=== PATIENT | male | born 1980 | race Two or more races ===

== ENCOUNTER 2022-01-28 15:48 | Emergency (ER) | payer SELFPAY ==
[~2022-01-28] VITALS: Ht 180.3 cm; Wt 99.8 kg
[2022-01-28] MEDS ORDERED: KETOROLAC TROMETHAMINE 15 MG INJ ONE (16:11)
[2022-01-28 16:14] LABS: *BILIRUBIN,URIN NEGATIVE (NEGATIVE); *BLOOD, URINE 3+ (NEGATIVE); *CLARITY,URINE CLOUDY (CLEAR); *COLOR,URINE YELLOW (YELLOW); *KETONES,URINE TRACE (NEGATIVE); *UROBILINOGEN,URINE 0.2 E.U./dl (NORMAL); LEUKOCYTE ESTERASE ,URINE NEGATIVE (NEGATIVE); NITRITE, URINE NEGATIVE (NEGATIVE); PH,URINE 5.5 (5.0-8.0); UGLUCOSE NEGATIVE (NEGATIVE)
[2022-01-28] MEDS ORDERED: KETOROLAC TROMETHAMINE 15 MG INJ IVP ONE (16:15)
[2022-01-28] MEDS ORDERED: IV NORMAL SALINE 500 ML BAG IV ONE (16:15)
[2022-01-28 16:24] LABS: MEAN CORPUSCULAR HEMOGLOBIN 29.4 uug (23.8-33.4); MEAN CORPUSCULAR VOLUME 86.3 fL (73.0-96.2); PLATELET COUNT (AUTO) 260 K/uL (152-348)
[2022-01-28 16:31] LABS: CREATININE 1.7 mg/dL (0.6-1.3); POTASSIUM 4.4 mmol/L (3.5-5.1)
[2022-01-28 16:36] LABS: BILIRUBIN,DIRECT 0.2 mg/dL (0.0-0.2); BILIRUBIN,TOTAL 0.8 mg/dL (0.2-1.0); TOTAL PROTEIN, SERUM 7.7 g/dL (6.4-8.2)
--- NOTE | 2022-01-28 17:48 | NUR ---
"Plan to admit" per Dr. Mcclure. ER registration Jairo, nursing distribution operation supervisor Linda and 3rd floor staff nurse Yasmin notified. Patient is comfortable@this time, for possible surgery tonight.
--- NOTE | 2022-01-28 18:00 | NUR ---
IV removed. Catheter intact and site benign. Pressure and 4x4 gauze applied to site. No bleeding noted. Patient does not wish to proceed with medical care recommended by . Patient given information related to possible complications, up to and including , which could occur as a result of leaving the hospital at this time. Patient verbalized understanding of risks involved due to leaving against medical advice. Patient signed AMA form.
--- NOTE | 2022-01-28 18:00 | NUR ---
Patient is refusing surgery at this time, MD notified.
[2022-01-28] MEDS ORDERED: TAMS-3 PO (18:14)
[2022-01-28] MEDS ORDERED: OXYC5CAP18 PO (18:14)
[2022-01-28] MEDS ORDERED: MAGNESIUM HYDROXIDE 30 ML LIQUID UDC PO PRN (18:45)
[2022-01-28] MEDS ORDERED: IV NS 1000 ML 1,000 ML IV PRN (18:45)
[2022-01-28] MEDS ORDERED: Medication Not On Formulary EA (Oxycodone Hcl 1 CAP) PO PRN (18:45)
[2022-01-28] MEDS ORDERED: ACETAMINOPHEN 325 MG TABLET PO PRN (18:45)
[2022-01-28] MEDS ORDERED: REMEDY ESSENTIAL ZINC PASTE 113 GM TP PRN (18:45)
[2022-01-28] MEDS ORDERED: CEFTRIAXONE 1 G in IV DEXTROSE 5% 50 ML IV SCH (18:45)
[2022-01-28] MEDS ORDERED: ONDANSETRON 4 MG/2 ML VIAL IV PRN (18:45)
[2022-01-28] MEDS ORDERED: HYDROMORPHONE 1 MG/1 ML DISP.SYRIN IV PRN (18:45)
[2022-01-28 20:14] LABS: BACTERIA,URINE NONE SEEN /HPF (NONE SEEN); RBC,URINE 20-50 /HPF (0-3); SQUAMOUS EPITHELIAL CELL,UR FEW /HPF (NONE SEEN); URINE AMORPHOUS URATE MODERATE /HPF; WBC,URINE 0-3 /HPF (0-3)
[2022-01-29] MEDS ORDERED: TAMSULOSIN HCL 0.4 MG CAP.SR.24H PO SCH (09:00)
== END 2022-01-28 18:13 | disposition left against medical advice (07) ==
LOC: ER 15:48
DX: N20.1 Calculus of ureter (principal); N17.9 Acute kidney failure, unspecified; N39.0 Urinary tract infection, site not specified; N13.5 Crossing vessel and stricture of ureter without hydronephrosis; R31.29 Other microscopic hematuria; Z20.822 Contact with and (suspected) exposure to COVID-19
CPT/HCPCS: 36415; 74176; 80048; 80076; 81001; 83690; 85025; 87086; 87426; 96361; 96374; 99284; J1885; J7040; A4663